=== PATIENT | female | born 1995 | race Caucasian/White ===

== ENCOUNTER → 2021-07-05 16:31 | Outpatient (BNVA) | payer OTHER, SELFPAY | PROVIDERS: Family Provider Family Medicine; PCP Registered Nurse; Visit Provider Registered Nurse | DX: Z12.83 Encounter for screening for malignant neoplasm of skin (principal) | CPT/HCPCS: 88304 ==

== ENCOUNTER → 2022-07-03 15:02 | Outpatient (BNVA) | payer OTHER, SELFPAY | PROVIDERS: Family Provider Family Medicine; PCP Registered Nurse; Visit Provider Nurse Practitioner Family | DX: N39.0 Urinary tract infection, site not specified (principal); M54.50 Low back pain, unspecified; R10.2 Pelvic and perineal pain | CPT/HCPCS: 81000 ==

== ENCOUNTER 2022-07-18 14:41 | Outpatient (CLI) | payer OTHER, SELFPAY ==
--- NOTE | 2022-07-18 14:47 | XR_ITS ---
WS: [email or web address] Lumbar spine, 3 views, 07/18/2022 Clinical Data: M54.50 - Low back pain, unspecified Comparison: None. Findings: No compression fractures or subluxation is seen. No disc space narrowing is seen. The transverse proc esses and SI joints are normal. XR/XR lumbar spine 2-3V* [id number] Impression: Negative lumbar spine.
--- NOTE | 2022-07-18 14:47 | XR_ITS ---
WS: [email or web address] Thoracic spine, 3 views, 07/18/2022 Clinical Data: M54.50 - Low back pain, unspecified Comparison: None. Findings: No compression fractures are seen. The disc heights are normal. There is a minimal levoscoliosis of the mid thoracic spine. Paraspinal regions are normal. XR/XR thoracic spine 3V* [id number] Impression: Minimal levoscoliosis of the thoracic spine.
--- NOTE | 2022-07-18 16:00 | US_ITS ---
WS: [email or web address] TRANSVAGINAL and transabdominal PELVIC ULTRASOUND HISTORY: R10.2 - Pelvic and perineal pain COMPARISON: None available. Uterus: 9.0 cm x 6.1 cm x 5.0 cm. Normal size anteverted uterus. No fibroid or mass identified. Endometrium: 1.2 cm. Trilaminar endometrium. Small nabothian cysts. Right ovary: 3.6 cm x 3.6 cm x 2.3 cm. Normal size and vascularity, no cystic or solid masses. Severa l small peripheral follicles. Left ovary: 4.3 cm x 3.7 cm x 2.7 cm. Normal size ovary. Small LEFT ovarian simple cyst measures 3.0 x 2.5 x 1.7 cm. The adjacent ovary has normal color Doppler. No free fluid. US/US pelvic complete* [id number] IMPRESSION: 1. Small simple LEFT ovarian cyst measures 3.0 x 2.5 x 1.7 cm. 2. Normal endometrium.
== END 2022-07-18 14:42 | disposition home or self-care (01) ==
PROVIDERS: PCP Registered Nurse; Visit Provider Nurse Practitioner Family
DX: R10.2 Pelvic and perineal pain (principal); M54.50 Low back pain, unspecified; N83.202 Unspecified ovarian cyst, left side
CPT/HCPCS: 72072; 72100; 76856

== ENCOUNTER → 2022-09-23 10:05 | Outpatient (BNVA) | payer OTHER, SELFPAY | PROVIDERS: PCP Registered Nurse; Visit Provider Registered Nurse | DX: R50.9 Fever, unspecified (principal); J10.1 Influenza due to other identified influenza virus with other respiratory manifestations | CPT/HCPCS: 87400 ==

== ENCOUNTER 2023-07-28 14:37 | Outpatient (CLI) | payer OTHER, SELFPAY ==
--- NOTE | 2023-07-28 14:51 | XR_ITS ---
WS: [email or web address] XR facial bones min 3V* [id number] REASON FOR EXAM: R51.9 - Headache, unspecified FINDINGS: Paranasal sinuses are unremarkable. Bony orbits and zygomatic arches are intact. Normal maxilla. Normal mandible. IMPRESSION: No significant abnormality.
--- NOTE | 2023-07-28 14:51 | XR_ITS ---
WS: [email or web address] XR sacrum coccyx min 2V [id number] REASON FOR EXAM: M53.3 - Sacrococcygeal disorders, not elsewhere classified FINDINGS: The sacrum is intact. No fracture identified. There is widening of the interval and moderate posterior angulation between the first and second cocc ygeal segments. Potentially this could represent an old injury. Delete that No soft tissue abnormality. IMPRESSION: Coccygeal abnormality as above.
== END 2023-07-28 14:38 | disposition home or self-care (01) ==
LOC: RAD 14:40
PROVIDERS: PCP Registered Nurse; Visit Provider Nurse Practitioner Family
DX: M53.3 Sacrococcygeal disorders, not elsewhere classified (principal); R51.9 Headache, unspecified; R93.7 Abnormal findings on diagnostic imaging of other parts of musculoskeletal system
CPT/HCPCS: 70150; 72220

== ENCOUNTER 2023-10-24 11:22 | Outpatient (CLI) | payer OTHER, SELFPAY ==
--- NOTE | 2023-10-24 11:45 | MR_ITS ---
WS: [email or web address] MRI LUMBAR SPINE NONCONTRAST TECHNIQUE: Sagittal T1, T2 and STIR imaging. Axial T1 and T2 imaging. CLINICAL INFORMATION: M53.3 - Sacrococcygeal disorders, not elsewhere classified COMPARISON: Radiograph 07/28/2023 FINDINGS: Sacrum is included on this study. Coccyx is not entirely included on this study. Imaging ex tends to the sacrococcygeal junction. Mild lumbar curve. No acute compression. No high-grade central canal stenosis. L1-L2: Normal. L2-L3: Normal. L3-L4: Mild facet arthropathy. Spinal canal and foramen are patent. L4-L5: Mild annular bulging with slight effacement of the ventral thecal sac. Slight impingement on t he RIGHT subarticular recess and traversing RIGHT L5 nerve root. Mild RIGHT foraminal narrowing. LEFT foramen is patent. Mild facet arthropathy. L5-S1: Mild annular bulging. Spinal canal and foramen are patent. Slight narrowing LEFT subarticular recess. Mild facet arthropathy. No edema visualized in the sacrum. Normal visualized sacrococcygeal junction. Multicystic ovaries bilaterally. Trace free fluid in the cul-de-sac. Incidental nabothian cyst in the cervix. IMPRESSION: 1. Mild lumbar curve. No acute compression. No high-grade central canal stenosis. 2. Mild annular bulging L4-5 with impingement the RIGHT subarticular recess and traversing RIGHT L5 nerve root. Mild RIGHT L4-5 foraminal narrowing. 3. Mild facet arthropathy L4-L5 and L5-S1. 4. Mild disc bulging L5-S1 with slight impingement on the LEFT S1 nerve root. 5. Visualized sacrum appears normal. No sacral fractures. Sacrococcygeal junction appears normal. En tire coccyx is not included.
== END 2023-10-24 11:23 | disposition home or self-care (01) ==
LOC: RAD 11:22
PROVIDERS: PCP Registered Nurse; Visit Provider Nurse Practitioner Family
DX: M53.3 Sacrococcygeal disorders, not elsewhere classified (principal); M51.37 Other intervertebral disc degeneration, lumbosacral region; M47.817 Spondylosis without myelopathy or radiculopathy, lumbosacral region
CPT/HCPCS: 72148

== ENCOUNTER → 2023-12-09 13:00 | Outpatient (BNVA) | payer OTHER, SELFPAY | PROVIDERS: PCP Registered Nurse; Visit Provider Nurse Practitioner Women's Health | DX: N83.201 Unspecified ovarian cyst, right side (principal); N83.202 Unspecified ovarian cyst, left side; Z01.419 Encounter for gynecological examination (general) (routine) without abnormal findings; R10.2 Pelvic and perineal pain | CPT/HCPCS: 82670; 83001; 83036; 83525; 84146; 84403; 84439; 84443; 84481; 87624 ==

== ENCOUNTER → 2023-12-25 08:46 | Outpatient (BNVA) | payer OTHER, SELFPAY | PROVIDERS: PCP Registered Nurse; Visit Provider Nurse Practitioner Women's Health | DX: N83.02 Follicular cyst of left ovary (principal); N83.01 Follicular cyst of right ovary; R10.2 Pelvic and perineal pain | CPT/HCPCS: 76830 ==

== ENCOUNTER 2024-03-05 13:56 | Outpatient (CLI) | payer OTHER, SELFPAY ==
--- NOTE | 2024-03-05 14:15 | CT_ITS ---
WS: [email or web address] CT HEAD TECHNIQUE: Noncontrast and contrast-enhanced CT of the head. CLINICAL INFORMATION: R22.1 - Localized swelling, mass and lump, neck COMPARISON: None. DLP: 2589.[address] scans at [facility] use at least one of these dose optimization techniques: automated e xposure control; mA and/or kV adjustment per patient size (includes targeted exams where dose is matc hed to clinical indication); or iterative reconstruction. FINDINGS: No evidence intracranial hemorrhage or mass effect. Ventricular system and basal cisterns are patent. Normal matson-white differentiation. No hydrocephalus. No evidence of enhancing intracranial mass or m ass effect. Paranasal sinuses are well aerated. Mild mucosal thickening in the ethmoid air cells. Mastoid air yanet ls are well aerated. Normal posterior nasopharynx and parapharyngeal fat. No acute intracranial findi ngs. IMPRESSION: 1. No evidence of intracranial hemorrhage or mass effect. 2. No evidence of enhancing intracranial mass or lesion. 3. MRI head without and with gadolinium would be more sensitive for detection of metastatic disease
--- NOTE | 2024-03-05 14:23 | CT_ITS ---
WS: [email or web address] NONCONTRAST AND CONTRAST ENHANCED CT NECK. TECHNIQUE: Noncontrast and contrast-enhanced CT neck with coronal and sagittal reformatted images. CLINICAL INFORMATION: LOCALIZED SWELLING,MASS AND LUMP,NECK COMPARISON: None. DLP: 2589.[address] scans at [facility] use at least one of these dose optimization techniques: automated e xposure control; mA and/or kV adjustment per patient size (includes targeted exams where dose is matc hed to clinical indication); or iterative reconstruction. FINDINGS: Palpable marker overlying the RIGHT lower neck just posterior to sternocleidomastoid. Small lymph nod e in this area just deep to the palpable marker measuring 9 x 4 mm with slight surrounding induration . This is most likely inflammatory and reactive. However, given history of melanoma, neoplasm difficu lt to entirely exclude. Parotid glands are normal. Normal submandibular glands. Some images of the tongue base degraded due t o dental artifact. Normal posterior nasopharynx. Normal parapharyngeal fat. No evidence of supraglott ic or glottic mass. Normal subglottic airway. Normal enhancing thyroid tissue. Visualized lung apices are well aerated. Normal visualized cervical spine. A few slightly prominent submandibular space and upper cervical chain lymph nodes. A few normal sized lymph nodes in the posterior triangle. IMPRESSION: 1. Small lymph node just deep to the palpable marker RIGHT lower neck measuring 9 x 4 mm slightly pr ominent but not pathologically enlarged with a small amount of surrounding induration. This is most l ikely inflammatory and reactive but technically nonspecific given history of melanoma. If persistent, consider short interval follow-up neck CT and/or PET/CT if strong clinical suspicion for recurrent m elanoma. 2. A few slightly prominent but not enlarged submandibular space, upper cervical chain and posterior triangle lymph nodes nonspecific but most likely reactive. 3. Salivary glands are normal. 4. No evidence of supraglottic or glottic mass. 5. No other suspicious findings.
[2024-03-05] MEDS: iohexol 350 mg/mL 500 mL Btl (per mL) IV ×2 (15:22→15:23)
== END 2024-03-05 13:57 | disposition home or self-care (01) ==
LOC: RAD 13:56
PROVIDERS: PCP Registered Nurse; Visit Provider Registered Nurse
DX: R22.1 Localized swelling, mass and lump, neck (principal); Z98.890 Other specified postprocedural states; Z85.820 Personal history of malignant melanoma of skin
CPT/HCPCS: 70470; 70492; Q9967

== ENCOUNTER 2024-03-25 14:58 | Outpatient (CLI) | payer OTHER, SELFPAY ==
[2024-03-25 15:58] LABS: Basophils % 0.6 %; Eosinophils # 0.1 10^3/uL (0.0-0.8); Eosinophils % 1.2 %; Hematocrit 41.5 % (36-47); Lymphocytes # 2.7 10^3/uL (0.8-4.8); Lymphocytes % 41.2 %; Mean Corpuscular HGB Conc 32.3 g/dL (30-55); Mean Corpuscular Hemoglobin 28.9 pg (27-33); Mean Corpuscular Volume 89.6 fl (85-98); Mean Platelet Volume 10.3 fL (7.4-10.4); Monocytes # 0.5 10^3/uL (0.2-0.9); Monocytes % 7.1 %; Neutrophils # 3.27 10^3/uL (1.8-7.7); Neutrophils % 49.7 %; Nucleated Red Blood Cells % 0 %; Platelet Count 283 10^3/cmm (157-399); Red Blood Count 4.63 10^6/uL (3.85-5.65); Red Cell Distribution Width 13.1 % (12.1-15.1); White Blood Count 6.58 10^3/uL (3.29-11.43)
[2024-03-25 16:49] LABS: 25 Hydroxy Vitamin D 58 ng/mL (30-100); Alanine Aminotransferase 15 U/L (0-33); Albumin Level 4.3 g/dL (3.5-5.2); Alkaline Phosphatase 62 U/L (35-105); Anion Gap 14.4 (5-19); Aspartate Amino Transferase 15 U/L (0-32); Blood Urea Nitrogen 13 mg/dL (6-20); Calcium 8.5 mg/dL (8.5-10.5); Carbon Dioxide 26 mmol/L (22-29); Chloride 102 mmol/L (98-107); Globulin 2.9 g/dL (1.3-4.6); Glomerular Filtration Rate 98.3 mL/min (90-130); Glucose 90 mg/dL (65-115); Lactate Dehydrogenase 137 U/L (135-214); Osmolality Calculated 288 mOsm/kg (285-295); Potassium 3.4 mmol/L (3.5-5.1); Sodium 139 mmol/L (136-145); Thyroid Stimulating Hormone 1.19 uIU/mL (0.27-4.20); Total Bilirubin 0.5 mg/dL (0.15-1.2); Total Protein 7.2 g/dL (6.6-8.7); Vitamin B12 460 pg/mL (232-1245)
== END 2024-03-25 14:59 | disposition home or self-care (01) ==
LOC: LAB 15:00
PROVIDERS: PCP Registered Nurse; Visit Provider Dermatology
DX: Z85.820 Personal history of malignant melanoma of skin (principal)
CPT/HCPCS: 80053; 82306; 82607; 83615; 84443; 85025